=== PATIENT | female | born 1960 | race Caucasian/White ===

== ENCOUNTER 2017-03-08 12:34 | Emergency (ER) | payer SELFPAY ==
[~2017-03-08] VITALS: Ht 170.2 cm; Wt 47.6 kg
[~2017-03-08 12:34] MED LIST: ALB0.5 INH; ALB18R INH; ALBUTEROL INH; ALPR-429 PO; AMO500 PO; AZI250 PO; AZIT-1 PO; AZIT1PAC21 PO; AZIT500T47 PO; BEN100 PO; BENZ200C38 PO; BUD180R IH; CELEXA; CLAR-1 PO; CLIN300C99 PO; CLO1 PO; CLON-303 *; CLONAZEPAM; DICL-195 PO; DOXY-179 PO; DOXY-228 PO; ENAL-1 PO; ESTR0.5T18 PO; FLU150 PO; FLUC150T40 PO; HYDR-3074 PO; HYDR-3250 PO; HYDR-385 PO; HYDR473S4 PO; LEVO750T11 FT; LISI-362 PO; LOR1 PO; LOR5 PO; LOR5/325 PO; LORA-630 PO; LORA-633 PO; METH4TAB66 PO; METR-160 PO; MIR15 PO; MIRT-1 PO; MIRT-18 PO; NAPR500T75 PO; OMEP-137 PO; ONDA4TAB PO; OXYC-865 PO; PENI-24 PO; PER PO; PRE10 JT; PRE20 PO; PRED-314 PO; PRED20TA6 PO; PRO25 PO; PROM-110 PO; REMERON; RIZA10TA22 PO; SIMVASTATIN; SUM25 PO; TRA50 PO; TRAM-420 PO; TRAM-627 PO; ZOLP-1 PO; ZOLP-350 PO; ZOLP12.545 PO; ZOLP12.546 PO
--- NOTE | 2017-03-08 12:42 | ER Report ---
History and Physical Time Seen By MD: 12:42 HPI/ROS This is a 56-year-old female current tobacco smoker who presents to the emergency department with bleeding in her left lower tooth that has been worsening for the past 3-4 days. She states that she does not have a dentist. She's been taking ibuprofen for the pain without relief. She is able to take by mouth. No fever chills. Remainder of the 14 system rev: Yes Allergies: Coded Allergies: trazodone (Unverified Allergy, Severe, AIRWAY OBSTRUCTION, 11/22/16) codeine (Verified Allergy, Intermediate, HIVES, 11/22/16) Home Meds Reported Medications Eszopiclone (LUNESTA) 3 Mg Tablet, 3 MG PO QHS 03/08/17 Lorazepam (ATIVAN) 0.5 Mg Tablet, 1 MG PO Q4-6H 03/08/17 Mirtazapine (REMERON) 30 Mg Tablet, 30 MG PO DAILY 11/22/16 Discontinued Reported Medications Zolpidem Tartrate (AMBIEN) 5 Mg Tablet, 1 TAB PO QHS, TAB 11/22/16 Reviewed Nurses Notes: Yes Old Medical Records Reviewed: Yes Hx Smoking: Yes (/ PPD) Smoking Status: Current: Every Day Smoker Exposure to Second Hand Smoke?: Yes Hx Substance Use Disorder: No Hx Alcohol Use: No Constitutional Vital Sign - Last 24 Hours 03/08/17 12:46 Temp 97.7 Pulse 96 Resp 16 B/P (MAP) 130/90 Pulse Ox 99 O2 Delivery Room Air Physical Exam General Appearance: The patient is alert, has no immediate need for airway protection and no current signs of toxicity. Eyes: Pupils equal and round no injection. Dental: Poor dentician with very few teeth remaining in tact. Dental carry and mild TTP to left lower tooth. No swelling of gums/tongue. No evidence of abscess. Respiratory: Chest is non tender, lungs are clear to auscultation. Cardiac: regular rate and rhythm Gastrointestinal: Abdomen is soft and non tender, no masses, bowel sounds normal. Extremities have full range of motion and are non tender. Skin: No rashes or lesions. DIFFERENTIAL DIAGNOSIS: After history and physical exam differential diagnosis was considered for dental abscess, princess's angina, dental infection Medical Decision Making ED Course/Re-evaluation ED Course I offered this patient a dental block to help the pain, but the patient refused. I gave her 1 g of Tylenol, and recommended that she take 1 g of Tylenol 3 times a day for the pain. I also gave her a 1st dose of antibiotics. I will give her a prescription for antibiotics as well. I counseled her that she needed to call a dentist for definitive treatment. She voiced understanding , and said she will try to find a dentist. Re-evaluation The patient has refused Tylenol, and was argumentative with her nurse about getting narcotics. I told her that narcotics are not indicated for chronic tooth pain and again offered her a dental block which she refused Decision to Disposition Date: Mar 08, 2017 Decision to Disposition Time: 13:07 Depart Departure Latest Vital Signs Vital Signs Date Time Temp Pulse Resp B/P (MAP) Pulse Ox O2 Delivery O2 Flow Rate FiO2 03/08/17 12:46 97.7 96 16 130/90 99 Room Air Impression: Primary Impression: Tooth pain Condition: Improved Disposition: HOME OR SELF-CARE New Scripts Amoxicillin (AMOXICILLIN) 500 Mg Capsule 1 CAP PO BID for 10 Days, #20 CAPSULE 0 Refills Prov: RISHABH OLIVA MD 03/08/17 Patient Instructions: Toothache (ED) RISHABH OLIVA MD Mar 08, 2017 12:42
[2017-03-08] MEDS ORDERED: LORA-1455 PO (12:43)
[2017-03-08] MEDS ORDERED: ESZ3PT PO (12:44)
[2017-03-08] MEDS ORDERED: PENICILLIN VK 250 MG TAB PO SCH (12:55)
[2017-03-08] MEDS ORDERED: ACETAMINOPHEN 500 MG TAB PO ONE (12:55)
[2017-03-08] MEDS ORDERED: AMOX-362 PO (13:10)
== END 2017-03-08 13:43 | disposition home or self-care (01) ==
LOC: ER 12:35
DX: K08.89 Other specified disorders of teeth and supporting structures (principal)
CPT/HCPCS: 99282